=== PATIENT | male | born 1985 | race Caucasian/White ===

== ENCOUNTER 2018-12-17 09:23 | Emergency (ER) | payer MEDICARE, MEDICAID ==
[~2018-12-17] VITALS: Ht 175.3 cm; Wt 63.6 kg
[~2018-12-17 09:23] MED LIST: PALI234D IM
[2018-12-17 09:30] VITALS: BP 109/69
[2018-12-17] MEDS ORDERED: BUPIVAcaine/PF 2.5 mg/ml (0.25%) 30ml vial IJ ONE (09:40)
[2018-12-17] MEDS ORDERED: BUPIVAcaine/PF 2.5mg/ml (0.25%) 10ml vial IJ ONE (09:55)
[2018-12-17] MEDS ORDERED: AMOX-580 PO (10:01)
== END 2018-12-17 10:12 | disposition home or self-care (01) ==
LOC: ER 09:24
DX: K04.7 Periapical abscess without sinus (principal); K02.9 Dental caries, unspecified; Z59.0 Homelessness
CPT/HCPCS: 64400; 99284; J3490

== ENCOUNTER 2019-02-11 19:37 | Emergency (ER) | payer MEDICARE, MEDICAID ==
[~2019-02-11] VITALS: Ht 175.3 cm; Wt 54.0 kg
[2019-02-11 19:47] VITALS: BP 107/67
== END 2019-02-11 22:40 | disposition left against medical advice (07) ==
LOC: ER 19:38
DX: R45.89 Other symptoms and signs involving emotional state (principal); M54.5 Low back pain; Z53.21 Procedure and treatment not carried out due to patient leaving prior to being seen by health care provider

== ENCOUNTER 2019-06-11 21:50 | Emergency (ER) | payer MEDICAID, MEDICARE ==
[~2019-06-11] VITALS: Ht 180.3 cm; Wt 63.6 kg
--- NOTE | 2019-06-11 22:11 | NUR ---
PATIENT PLACED ON BED 23. REPORTED S/I. PATIENT WANDED BY SECURITY. PATIENT CHANGED INTO GREEN SCRUBS.
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
[2019-06-11 22:39] LABS: BASOPHILS # (AUTO) 0.1 X10'3 (0-0.2); EOSINOPHILS # (AUTO) 0.1 X10'3 (0-0.9); EOSINOPHILS % (AUTO) 1.1 % (0-6); HEMATOCRIT 40.9 % (42.0-52.0); HEMOGLOBIN 13.4 g/dl (14.0-17.9); LYMPHOCYTES # (AUTO) 1.8 X10'3 (1.1-4.8); LYMPHOCYTES % (AUTO) 25.5 % (21-51); MEAN CORPUSCULAR HEMOGLOBIN 27.2 PG (27.0-31.0); MEAN CORPUSCULAR HGB CONC 32.8 g/dL (33.0-36.5); MEAN CORPUSCULAR VOLUME 82.9 FL (78-98); MEAN PLATELET VOLUME 7.3 FL (7.4-10.4); MONOCYTES # (AUTO) 0.8 X10'3 (0-0.9); MONOCYTES % (AUTO) 10.5 % (2-12); NEUTROPHILS # (AUTO) 4.4 X10'3 (1.8-7.7); NEUTROPHILS % (AUTO) 61.9 % (42-75); PLATELET COUNT 394 X10'3 (140-440); RED BLOOD COUNT 4.93 X10'6 (4.70-6.10); RED CELL DISTRIBUTION WIDTH 14.2 % (11.5-14.5); WHITE BLOOD COUNT 7.1 X10'3 (4.5-11.0)
--- NOTE | 2019-06-11 22:39 | NUR ---
Pt's belongings documented and placed in ambulance bay lockers. Pt given a fresh pitcher of water and encouraged to drink. Awaiting UA.
--- NOTE | 2019-06-11 22:45 | NUR ---
Patient denies home medications. He usted to get Invegra shots, he tells this blog writer "it doesn't do nothing." Patient states last BM was today.
[2019-06-11 22:47] LABS: ALANINE AMINOTRANSFERASE 26 U/L (12-78); ALBUMIN 3.7 G/DL (3.4-5.0); ALKALINE PHOSPHATASE 112 IU/L (46-116); ANION GAP 8 (8-16); ASPARTATE AMINO TRANSFERASE 28 U/L (10-37); BILIRUBIN,TOTAL 0.3 MG/DL (0.1-1.0); BLOOD UREA NITROGEN 9 MG/DL (7-18); BUN/CREATININE RATIO 11.7 (5.4-32.0); CALCIUM 8.9 MG/DL (8.5-10.1); CHLORIDE 103 MMOL/L (99-107); CREATININE 0.77 MG/DL (0.60-1.10); GLUCOSE 98 MG/DL (70-104); POTASSIUM 3.6 MMOL/L (3.5-5.1); SODIUM 139 MMOL/L (135-145); TOTAL CARBON DIOXIDE 27.7 MMOL/L (24-32); TOTAL PROTEIN 7.5 G/DL (6.4-8.2); eGFR > 90 ML/MIN
--- NOTE | 2019-06-11 22:52 | NUR ---
Patient stinks, no recent bath. His looks disheveled. Awaiting MD jones.
[2019-06-11 22:57] LABS: ETHANOL < 0.010 GM/DL (0.0-0.010)
--- NOTE | 2019-06-11 22:59 | NUR ---
Evaluated by . B52 ordered. Per ok to adm meds without ua as patient unable to void at this time.
[2019-06-11] MEDS ORDERED: LORazepam 2 mg/ml vial IM ONE (23:00)
[2019-06-11] MEDS ORDERED: haloperidol lactate 5mg/ml inj IM ONE (23:00)
[2019-06-11] MEDS: diphenhydrAMINE 50 mg/ml inj IM ONE ×2 (23:11→23:19)
[2019-06-11] MEDS ORDERED: diphenhydrAMINE 25mg capsule PO ONE (23:20)
--- NOTE | 2019-06-11 23:20 | NUR ---
Patient accepted IM Haldol/Ativan injection. Patient refused IM Benadryl, states he would accept Benadry PO. Break RN is here now, she will adm Benadryl.
--- NOTE | 2019-06-11 23:21 | NUR ---
Pt has a small beige/paz backpack plus a large black binliner bag containing recyclables and clothing. Items placed in ambulance bay lockers.
--- NOTE | 2019-06-12 02:04 | NUR ---
Patient remains sleeping quietly. In view from the nursing station.
--- NOTE | 2019-06-12 05:03 | NUR ---
Patient remains sleeping quietly, in view from nursing station.
[2019-06-12 05:30] VITALS: BP 100/64
--- NOTE | 2019-06-12 06:48 | NUR ---
Pt asleep in no apparent distress in view of RN. Respirations are even and unlabored.
--- NOTE | 2019-06-12 07:41 | NUR ---
PT ASLEEP ON LEFT SIDE IN NO APPARENT DISTRESS AND IN VIEW OF RN RESPIRATIOSNS EVEN AND UNLABORED.
--- NOTE | 2019-06-12 08:01 | NUR ---
PUNEET FROM [facility] OFFICE CALLED, INFORMED THAT THE PT HAS BEEN MEDICALLY CLEARED BUT DOES NOT HAVE A UA. SHE STATES THAT IS OKAY, PACKET SENT.
[2019-06-12 08:53] LABS: URINE AMPHETAMINE SCREEN POSITIVE (Neg); URINE BARBITUATE SCREEN NEGATIVE (Neg); URINE BENZODIAZEPINES SCREEN NEGATIVE (Neg); URINE CANNABINOID SCREEN POSITIVE (Neg); URINE COCAINE SCREEN NEGATIVE (Neg); URINE METHADONE SCREEN NEGATIVE (Neg); URINE OPIATE SCREEN NEGATIVE (Neg); URINE PHENCYCLIDINE SCREEN NEGATIVE (Neg)
[2019-06-12 09:03] LABS: CLARITY,URINE CLEAR (Clear); COLOR,URINE YELLOW (Yellow); GLUCOSE, URINE NEGATIVE (Neg); KETONES,URINE NEGATIVE (Neg); LEUKOCYTE ESTERASE ,URINE NEGATIVE (Neg); NITRITES, URINE NEGATIVE (Neg); OCCULT BLOOD,URINE NEGATIVE (Neg); PROTEIN,URINE NEGATIVE (Neg); UROBILINOGEN,URINE 0.2 E.U/dL (0.2-1.0)
[2019-06-12 09:05] LABS: UA COLLECTION TYPE CLN CATCH MIDSTREAM
--- NOTE | 2019-06-12 09:12 | NUR ---
Packet faxed to [facility]
--- NOTE | 2019-06-12 09:32 | NUR ---
Breaking primary RN. pt is supine in bed with blankets over his head, regular breathing present, no distress observed
--- NOTE | 2019-06-12 09:59 | NUR ---
Pt speaking with staff from [facility]
== END 2019-06-12 11:10 ==
LOC: ER 21:52
DX: F29 Unspecified psychosis not due to a substance or known physiological condition (principal); R45.1 Restlessness and agitation; F22 Delusional disorders; F41.9 Anxiety disorder, unspecified; F31.9 Bipolar disorder, unspecified; F17.210 Nicotine dependence, cigarettes, uncomplicated; Z59.0 Homelessness
CPT/HCPCS: 36415; 80053; 80305; 80320; 81003; 84443; 85025; 87088; 96372; 99284; J1200; J1630; J2060; Q0163

== ENCOUNTER 2019-07-04 05:51 | Emergency (ER) | payer MEDICARE ==
[~2019-07-04] VITALS: Ht 180.3 cm; Wt 63.6 kg
--- NOTE | 2019-07-04 06:30 | NUR ---
received this patient but, report was not given due to nurse being busy with other patient and had not left the room since this patient arrived. Patient seen sleeping at this time
[2019-07-04 07:32] LABS: BASOPHILS % (AUTO) 0.4 % (0-1); EOSINOPHILS % (AUTO) 0.4 % (0-6); HEMATOCRIT 37.3 % (42.0-52.0); HEMOGLOBIN 12.5 g/dl (14.0-17.9); LYMPHOCYTES # (AUTO) 1.3 X10'3 (1.1-4.8); LYMPHOCYTES % (AUTO) 12.8 % (21-51); MEAN CORPUSCULAR HEMOGLOBIN 27.7 PG (27.0-31.0); MEAN CORPUSCULAR HGB CONC 33.6 g/dL (33.0-36.5); MEAN CORPUSCULAR VOLUME 82.4 FL (78-98); MONOCYTES % (AUTO) 9.4 % (2-12); NEUTROPHILS # (AUTO) 7.8 X10'3 (1.8-7.7); PLATELET COUNT 400 X10'3 (140-440); RED BLOOD COUNT 4.53 X10'6 (4.70-6.10); RED CELL DISTRIBUTION WIDTH 14.2 % (11.5-14.5); WHITE BLOOD COUNT 10.1 X10'3 (4.5-11.0)
[2019-07-04 07:37] VITALS: BP 90/46
[2019-07-04 07:56] LABS: ALANINE AMINOTRANSFERASE 30 U/L (12-78); ALBUMIN 3.1 G/DL (3.4-5.0); ALBUMIN/GLOBULIN RATIO 0.9 (1.1-1.5); ALKALINE PHOSPHATASE 113 IU/L (46-116); ANION GAP 10 (8-16); ASPARTATE AMINO TRANSFERASE 29 U/L (10-37); BILIRUBIN,TOTAL 0.3 MG/DL (0.1-1.0); BLOOD UREA NITROGEN 18 MG/DL (7-18); BUN/CREATININE RATIO 28.1 (5.4-32.0); CALCIUM 8.5 MG/DL (8.5-10.1); CHLORIDE 104 MMOL/L (99-107); CREATININE 0.64 MG/DL (0.60-1.10); GLUCOSE 81 MG/DL (70-104); POTASSIUM 3.9 MMOL/L (3.5-5.1); SODIUM 139 MMOL/L (135-145); TOTAL CARBON DIOXIDE 25.3 MMOL/L (24-32); TOTAL PROTEIN 6.5 G/DL (6.4-8.2); eGFR > 90 ML/MIN
[2019-07-04 08:00] LABS: ETHANOL < 0.010 GM/DL (0.0-0.010)
== END 2019-07-04 10:00 | disposition home or self-care (01) ==
LOC: ER 05:51
DX: R45.851 Suicidal ideations (principal); F41.9 Anxiety disorder, unspecified; F31.9 Bipolar disorder, unspecified; F20.9 Schizophrenia, unspecified; Z59.0 Homelessness; Z79.899 Other long term (current) drug therapy
CPT/HCPCS: 36415; 80053; 80320; 85025; 99284

== ENCOUNTER 2024-02-03 01:44 | Emergency (ER) | payer MEDICARE ==
[~2024-02-03] VITALS: Ht 175.3 cm; Wt 61.4 kg
[2024-02-03] MEDS: LORazepam 1 MG tablet PO ONE (04:55)
[2024-02-03 06:06] VITALS: BP 105/69; PULSE 48; RESP 14; TEMP 97.5; O2SAT 100
== END 2024-02-03 06:07 | disposition home or self-care (01) ==
LOC: ER 01:45
DX: F41.9 Anxiety disorder, unspecified (principal); F31.9 Bipolar disorder, unspecified; Z79.899 Other long term (current) drug therapy
CPT/HCPCS: 99283

== ENCOUNTER 2025-04-03 20:23 | Emergency (ER) | payer MEDICARE ==
[~2025-04-03] VITALS: Ht 172.7 cm; Wt 60.0 kg
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
--- NOTE | 2025-04-03 20:36 | ELECTROCARDIOGRAPH REPORT ---
[facility] Test Date: 2025-04-03 Test Time: 20:33:18 Pat Name: VIJAY GARCIA Department: [facility] Patient ID: [facility]-[id number] Room: Gender: M Media Analyst: RONNY : 1985 Requested By: ELIZABETH PISANO Order Number: [id number] Reading MD: Dr. Elizabeth Pisano Measurements Intervals [place] Rate: 75 P: 80 ID: [id number] QRS: 89 QRSD: 96 T: 79 QT: 398 QTc: 445 Interpretive Statements Sinus rhythm Consider left atrial enlargement Electronically Signed On 04-03-2025 20:57:[address] Elizabeth Pisano Please click the below link to view image of tracing.
[2025-04-03 20:52] LABS: MEAN PLATELET VOLUME 7.1 FL (7.4-10.4); RED CELL DISTRIBUTION WIDTH 13.7 % (11.5-14.5)
[2025-04-03 21:08] LABS: CREATININE 1.04 MG/DL (0.60-1.10); PRO BRAIN NATRIURETIC PEPTIDE 81 PG/ML (0-125); TOTAL CARBON DIOXIDE 24.9 MMOL/L (24-32); eCRCL 79 ML/MIN; eGFR 78 ML/MIN
--- NOTE | 2025-04-03 21:28 | RADIOLOGY REPORT ---
CHEST RADIOGRAPH Indication: CP Technique: Single frontal view of the chest was obtained Comparison: None FINDINGS: Lines and Tubes: None Lungs: No focal consolidation. Hyperinflation of the lungs. Pleura: No effusion. No pneumothorax. Cardiomediastinal contours: Unremarkable Bones: No acute osseous abnormality. IMPRESSION: No acute cardiopulmonary disease. Hyperinflation of the lungs.
[2025-04-03] MEDS ORDERED: METF-1203 PO (22:28)
[2025-04-03 22:40] VITALS: BP 123/87; PULSE 62; RESP 18; TEMP 97.6; O2SAT 100
== END 2025-04-03 22:48 | disposition home or self-care (01) ==
LOC: ER 20:23
DX: T40.601A Poisoning by unspecified narcotics, accidental (unintentional), initial encounter (principal); R73.9 Hyperglycemia, unspecified; R06.02 Shortness of breath; F20.9 Schizophrenia, unspecified; F31.9 Bipolar disorder, unspecified; F17.200 Nicotine dependence, unspecified, uncomplicated; Y92.89 Other specified places as the place of occurrence of the external cause
CPT/HCPCS: 36415; 71045; 80048; 82948; 83880; 84484; 85025; 93005; 99285